=== PATIENT | male | born 1955 | race Caucasian/White ===

== ENCOUNTER 2019-01-01 14:08 | Outpatient (CLI) | payer BC, SELFPAY ==
--- NOTE | 2019-01-01 14:04 | DI.RAD_ITS ---
SYMPTOMS/DIAGNOSIS: LEFT KNEE PAIN There are no prior comparison exams. There are severe degenerative changes of the lateral femorotibial joint and prominent periarticular spurring. The medial femorotibial joint is well maintained. There is also spurring at the patellofemoral joint. 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
== END 2019-01-01 14:28 ==
PROVIDERS: Visit Provider Physician Assistant
DX: M25.562 Pain in left knee (principal); M17.12 Unilateral primary osteoarthritis, left knee
CPT/HCPCS: 73562